=== PATIENT | male | born 1940 | race Two or more races ===

== ENCOUNTER 2024-03-05 13:49 | Outpatient (CLI) | payer OTHER | END 2024-03-05 13:56 | disposition home or self-care (01) | LOC: LAB 13:49 | DX: H44.19 Other endophthalmitis (principal) ==

== ENCOUNTER → 2024-05-30 10:56 | Outpatient (CLI) | payer OTHER | END | disposition home or self-care (01) | LOC: LAB 10:56 | DX: H44.19 Other endophthalmitis (principal) ==